=== PATIENT | female | born 1965 | race Caucasian/White ===

== ENCOUNTER → 2016-04-10 | Outpatient (CLI) | payer BC ==
--- NOTE | 2016-04-11 12:41 | MAMMOGRAPHY REPORT ---
BILATERAL DIGITAL SCREENING MAMMOGRAM TOMOSYNTHESIS WITH CAD: 04/10/2016 CLINICAL HISTORY: Routine screening examination. TECHNIQUE: Breast tomosynthesis in addition to standard 2D mammography was performed. Current study was also evaluated with a Computer Aided Detection (CAD) system. COMPARISON: Comparison is made to exams dated: 04/07/2015 mammogram, 04/06/2014 mammogram, 3 mammogram, 12/20/2011 mammogram, 12/15/2010 mammogram, and 12/05/2009 mammogram - [facility]. BREAST COMPOSITION: There are scattered areas of fibroglandular density in both breasts. FINDINGS: There are new grouped microcalcifications in the upper outer middle one third of the left breast, for which additional spot magnification views are recommended. No other suspicious mass, architectural distortion or cluster of microcalcifications is seen. IMPRESSION: ACR BI-RADS CATEGORY 0: INCOMPLETE EVALUATION: NEED ADDITIONAL IMAGING EVALUATION The new grouped microcalcifications in the left upper outer breast needs additional evaluation. The patient will be called to schedule an appointment. Approximately 10% of breast cancers are not detected with mammography. A negative mammographic repor t should not delay biopsy if a clinically suggestive mass is present. Karyna Talavera M.D. ay/:04/10/2016 17:03:10 Ampoule Filler: Keshia ROMANO)(Mackenzie), [facility] letter sent: Addl Imaging 0 BI-RADS Code: ACR BI-RADS Category 0: Incomplete Evaluation: Need Additional Imaging Evaluation
== END | disposition home or self-care (01) ==
LOC: C.MAMM 16:21
PROVIDERS: ATTEND Obstetrics & Gynecology
DX: Z12.31 Encounter for screening mammogram for malignant neoplasm of breast (principal); R92.0 Mammographic microcalcification found on diagnostic imaging of breast

== ENCOUNTER → 2016-04-16 | Outpatient (CLI) | payer BC ==
--- NOTE | 2016-04-16 14:56 | MAMMOGRAPHY REPORT ---
UNILATERAL LEFT DIGITAL DIAGNOSTIC MAMMOGRAM AND TARGETED LEFT ULTRASOUND: 04/16/2016 CLINICAL HISTORY: 51-year-old woman called back from screening mammography for grouped left breast c alcifications. At the time of diagnostic evaluation patient reported an itchy left nipple and areol a for which targeted ultrasound was also performed. TECHNIQUE: Spot magnification left CC and ML views were obtained. COMPARISON: Comparison is made to exams dated: 04/10/2016 mammogram, 04/07/2015 mammogram, 04/06/2014 mammogram, 01/07/2013 mammogram, 12/15/2010 mammogram, and 12/05/2009 mammogram - [facility]. BREAST COMPOSITION: There are scattered areas of fibroglandular density in the left breast. FINDINGS: There is a 7.5 mm grouping of punctate and amorphous microcalcifications in the approximat e 3:00 middle one third of the left breast that is new compared to prior mammograms. This is indete rminate, warranting definitive characterization with tissue sampling. No other suspicious mass, arc hitectural distortion or cluster of microcalcifications is seen throughout the remainder of the visu alized left breast. At the time of diagnostic evaluation, the patient reported and itchy left nipple and areola, but she also recently had shingles along her left upper abdomen. Therefore additional sonographic evaluati on was performed in the retroareolar and periareolar left breast. Normal fibroglandular tissue is s een without a discrete solid or cystic mass. IMPRESSION: ACR BI-RADS CATEGORY 4B: INTERMEDIATE SUSPICION FOR MALIGNANCY, TARGETED ULTRASOUND ACR BI-RADS CATEGORY 4B: INTERMEDIATE SUSPICION FOR MALIGNANCY 1. Stereotactic guided biopsy is recommended for new grouped punctate and amorphous micro-calcifica tions in the upper outer quadrant of the left breast. 2. Clinical follow-up is recommended for the left nipple and areola itchiness. These results and recommendations were discussed with the patient at the time of the exam. She tent atively scheduled the biopsy prior to leaving our department. Approximately 10% of breast cancers are not detected with mammography. A negative mammographic repor t should not delay biopsy if a clinically suggestive mass is present. Karyna Talavera M.D. ay/:04/16/2016 12:26:46 French Comber: Roxanne JI(Dorinda)(Mackenzie), [facility] letter sent: Abnormal 4/5 BI-RADS Code: ACR BI-RADS Category 4B: Intermediate Suspicion For Malignancy Ultrasound BI-RADS: AC R BI-RADS Category 4B: Intermediate Suspicion For Malignancy
== END | disposition home or self-care (01) ==
LOC: C.MAMM 09:44
PROVIDERS: ATTEND Obstetrics & Gynecology
DX: R92.0 Mammographic microcalcification found on diagnostic imaging of breast (principal)

== ENCOUNTER → 2016-04-20 | Outpatient (CLI) | payer BC ==
--- NOTE | 2016-04-20 13:18 | Discharge Instructions ---
Discharge Instructions Procedure Procedure Date: Apr 20, 2016. Reason for visit: Left Calcs. Discharge Discharge Date: Apr 20, 2016. Discharge Diagnosis: status post breast biopsy Instructions Activity Recommendations: Additional Limitations (see below) Return to School/Work: no limitations Recommended Home Diet: No Limitations Provider Instructions: ACTIVITY RECOMMENDATIONS: * No lifting, pushing, pulling or exercising the affected side for three days. RETURN TO SCHOOL/WORK: * You may return to work/school after the procedure, but do not perform any strenuous activities for 24 to 48 hours. MEDICATIONS: * Tylenol (two 325 mg) every four to six hours if needed for mild pain (if not allergic to Tylenol). DIET: * Resume previous diet. SPECIAL CARE INSTRUCTIONS: * Keep biopsy site dry for 24 hours. May shower after 24 hours, but do not soak (bathe) incision. * May remove Tegaderm (plastic patch) tomorrow AFTER showering. * Leave the steri-strips on for one week. Allow the steri-strips to fall off by themselves. If not off after one week, you may remove them. You may place a Bandaid crosswise over the strips, if desired. * Apply ice 10 minutes on and 10 minutes off as needed. * Wear a bra at bedtime to sleep more comfortably for 2-3 days. * Your referring physician should have the results after approximately 5 to 7 business days. * Call for unusual bleeding, fever, drainage, etc or if you have any questions call during normal business hours or after hours call Dr Marcial, [phone]. FOLLOW UP VISIT: Follow-up with Referring Physician as scheduled. Allergies Coded Allergies: No Known Allergies (Unverified , 12/05/11) Jean-Claude Umanzor Recommendations: Call your doctor if: * Temperature above 101 degrees * Pain not relieved by pain medicine ordered * There is increased drainage or redness from any incision * You have any unanswered questions or concerns. Your Doctors Instructions noted above were prepared by provider Annie Marcial. Patient Signature Section: Patient Instructions Signature Page Edith Jones Patient (or Guardian) Signature/Date: I have read and understand the instructions given to me by my caregivers. Caregiver/RN/Doctor Signature/Date: The above-named patient and/or guardian has received patient instructions on this date. + Original Patient Signature Page (only) stays with chart. Please make copy for patient.
--- NOTE | 2016-04-20 15:18 | MAMMOGRAPHY REPORT ---
STEREOTACTIC GUIDED BIOPSY LEFT BREAST: 04/20/2016 CLINICAL HISTORY: Indeterminate calcifications in the left upper outer quadrant. PATIENT CONSENT: The procedure, risks, benefits, and alternatives of stereotactic biopsy with clip p taylor were discussed with the patient, and verbal and written consent was obtained. A timeout wa s performed immediately prior to the procedure. PROCEDURE DESCRIPTION: With stereotactic guidance, aseptic technique, and lidocaine as a local anest hetic (1% lidocaine to anesthetize the skin and 1% lidocaine with epinephrine to anesthetize the tobi per tissues), the area of concern was sampled multiple times with a 9-gauge vacuum-assisted biopsy n eedle (Suros Eviva). The path of approach was lateral. The specimen radiograph demonstrates calcif ications to be present in the samples. A metallic marker clip was placed at the biopsy site. This was confirmed on postprocedure mammograms. Direct pressure was applied at the biopsy site and hemos tasis was readily achieved. The patient tolerated the procedure without complication. She was give n wound care instructions. COMPARISON: Comparison is made to exams dated: 04/16/2016 mammogram, 04/10/2016 mammogram, 04/07/2015 m ammogram, 04/06/2014 mammogram, 01/07/2013 mammogram, and 12/20/2011 mammogram - [facility]. IMPRESSION: STEREOTACTIC GUIDED BIOPSY Stereotactic biopsy of indeterminate calcifications in the left upper outer quadrant, with clip kae ward. The patient will receive pathology results from her referring physician. Annie Marcial M.D. /:04/20/2016 13:19:10 Attending Technologist: Roxanne Nieves RT(R)(M), [facility] Marketing Graphics Specialist: Yehuda Wong RT(R)(M), [facility]
--- NOTE | 2016-04-20 15:18 | MAMMOGRAPHY REPORT ---
UNILATERAL LEFT DIGITAL DIAGNOSTIC MAMMOGRAM: 04/20/2016 CLINICAL HISTORY: Status post stereotactic biopsy of left upper outer quadrant calcifications. TECHNIQUE: Postprocedural left CC and LM views were obtained. COMPARISON: Comparison is made to exams dated: 04/10/2016 mammogram, 04/07/2015 mammogram, 04/06/2014 mammogram, 01/07/2013 mammogram, and 12/20/2011 mammogram - [facility]. BREAST COMPOSITION: There are scattered areas of fibroglandular density in the left breast. FINDINGS: A new biopsy marker clip is seen at the site of the biopsied calcifications in the left u pper outer quadrant/3:00 region. No significant postbiopsy hematoma is seen. IMPRESSION: POST PROCEDURE IMAGING FOR MARKER PLACEMENT New biopsy marker clip status post left breast stereotactic biopsy. Pathology results are pending. Approximately 10% of breast cancers are not detected with mammography. A negative mammographic repor t should not delay biopsy if a clinically suggestive mass is present. Annie Marcial M.D. ah/:04/20/2016 13:36:45 Air Conditioning Unit Tester: Yehuda JI(R)(M), [facility] BI-RADS Code: Post Procedure Imaging For Marker Placement
== END | disposition home or self-care (01) ==
LOC: C.MAMM 12:36
PROVIDERS: ATTEND Obstetrics & Gynecology
DX: N60.12 Diffuse cystic mastopathy of left breast (principal); R92.0 Mammographic microcalcification found on diagnostic imaging of breast

== ENCOUNTER → 2016-05-14 | Outpatient (CLI) | payer BC | END | disposition home or self-care (01) | LOC: C.PAPS 13:14 | PROVIDERS: ATTEND Obstetrics & Gynecology | DX: Z01.419 Encounter for gynecological examination (general) (routine) without abnormal findings (principal) ==

== ENCOUNTER → 2016-07-05 | Outpatient (CLI) | payer BC ==
--- NOTE | 2016-07-05 13:35 | MAMMOGRAPHY REPORT ---
UNILATERAL LEFT DIGITAL DIAGNOSTIC MAMMOGRAM WITH CAD AND TARGETED LEFT ULTRASOUND: 07/05/2016 CLINICAL HISTORY: The patient had a stereotactic biopsy of the left breast April 2016, which yield ed benign findings. She reports that she had tenderness in the left breast during her clinical lubna st exam and May, and also feels a possible lump. TECHNIQUE: Current study was also evaluated with a Computer Aided Detection (CAD) system. Left CC and MLO views were obtained. COMPARISON: Comparison is made to exams dated: 04/20/2016 stereotactic biopsy, 04/20/2016 mammogram, 04/16/2016 mammogram, 04/16/2016 ultrasound, 04/10/2016 mammogram, and 04/07/2015 mammogram - [facility]. BREAST COMPOSITION: There are scattered areas of fibroglandular density in the left breast. FINDINGS: A triangle marker was placed at the site of the palpable lump and pain in the left 12 to 1 :00 breast. A square marker was placed at the site of the scar from stereotactic biopsy in the left upper outer quadrant. A biopsy marker clip is again seen within the left upper outer quadrant from prior benign stereotactic biopsy. There are no suspicious masses, calcifications, or areas of arch itectural distortion noted in the left breast. No mass is seen at the biopsy site to suggest a teresa mariposa. Targeted ultrasound was performed of the area of tenderness pointed out by the patient in the left b reast at 12:00, with the possible palpable lump centered at 12:00 approximately 3 cm from the nipple . Sonographically normal tissue is seen in these regions, without evidence of a mass or other suspi cious sonographic abnormality. Targeted ultrasound was also performed of the area of the scar from stereotactic biopsy in the left breast at 3:00. A small ill-defined hypoechoic region is seen at th e biopsy site, consistent with expected postsurgical scarring. No suspicious mass is evident. No f luid collection is seen to suggest a hematoma. IMPRESSION: ACR BI-RADS CATEGORY 2: BENIGN, TARGETED ULTRASOUND ACR BI-RADS CATEGORY 2: BENIGN No suspicious mammographic or sonographic abnormality at the site of tenderness/possible lump in the left breast pointed out by the patient. There is no mammographic or targeted sonographic evidence of malignancy. Recommend clinical follow-up for left breast findings, and recommend routine bilater al screening mammograms which are due April 2017. The patient has been verbally notified of the results. Approximately 10% of breast cancers are not detected with mammography. A negative mammographic repor t should not delay biopsy if a clinically suggestive mass is present. Annie Marcial M.D. ah/:07/05/2016 10:38:26 Vmware Architect: Roxanne Carlisle, [facility] letter sent: Normal 1/2 BI-RADS Code: ACR BI-RADS Category 2: Benign Ultrasound BI-RADS: ACR BI-RADS Category 2: Benign
== END | disposition home or self-care (01) ==
LOC: C.MAMM 09:34
PROVIDERS: ATTEND Obstetrics & Gynecology
DX: N64.89 Other specified disorders of breast (principal)

== ENCOUNTER → 2016-08-21 | Outpatient (CLI) | payer BC ==
[2016-08-21 11:23] LABS: ALT/SGPT 20 U/L (12-78); BLOOD UREA NITROGEN 18 mg/dl (7-18); BUN/CREATININE RATIO 24.1 (10-20); CARBON DIOXIDE 30 mmol/L (21-32); CHLORIDE 104 mmol/L (98-107); CHOLESTEROL 181 mg/dl (0-200); CREATININE 0.73 mg/dl (0.60-1.20); GLUCOSE 99 mg/dl (70-99); POTASSIUM 3.9 mmol/L (3.5-5.1); SODIUM 139 mmol/L (136-145); TRIGLYCERIDES 77 mg/dl (0-150); VERY LOW DENSITY LIPOPROT CALC 15 mg/dl
[2016-08-21 11:33] LABS: ALB/GLOB RATIO 1.1 (0.9-2); ALKALINE PHOSPHATASE 45 U/L (45-117); AST/SGOT 14 U/L (15-37); CHOLESTEROL/HDL RATIO 2.7; HDL CHOLESTEROL 66 mg/dl; LDL CHOLESTEROL CALCULATED 100 mg/dl
[2016-08-21 11:44] LABS: CALCIUM 9.2 mg/dl (8.5-10.1)
== END | disposition home or self-care (01) ==
LOC: C.LABBC 07:51
PROVIDERS: ATTEND Physician Assistant Medical
DX: I10 Essential (primary) hypertension (principal)

== ENCOUNTER → 2017-04-18 | Outpatient (CLI) | payer OTHER ==
--- NOTE | 2017-04-19 15:08 | MAMMOGRAPHY REPORT ---
BILATERAL DIGITAL SCREENING MAMMOGRAM TOMOSYNTHESIS WITH CAD: 04/18/2017 TECHNIQUE: Breast tomosynthesis in addition to standard 2D mammography was performed. Current study was also evaluated with a Computer Aided Detection (CAD) system. COMPARISON: Comparison is made to exams dated: 07/05/2016 ultrasound, 07/05/2016 mammogram, 04/20/2016 stereotactic biopsy, 04/20/2016 mammogram, 04/16/2016 mammogram, and 04/16/2016 ultrasound - [facility]. BREAST COMPOSITION: There are scattered areas of fibroglandular density in both breasts. FINDINGS: No suspicious masses, calcifications, or areas of architectural distortion are noted in ei ther breast. There has been no significant interval change compared to prior exams. A biopsy marker clip is again noted within the left upper outer quadrant. IMPRESSION: ACR BI-RADS CATEGORY 2: BENIGN There is no mammographic evidence of malignancy. A 1 year screening mammogram is recommended. The pa tient will receive written notification of the results. Approximately 10% of breast cancers are not detected with mammography. A negative mammographic report should not delay biopsy if a clinically suggestive mass is present. Annie Marcial M.D. /:04/18/2017 16:21:32 Sdet: Corrina JI(Dorinda)(Mackenzie), [facility] letter sent: Normal 1/2 BI-RADS Code: ACR BI-RADS Category 2: Benign
== END | disposition home or self-care (01) ==
LOC: C.MAMM 15:55
PROVIDERS: ATTEND Obstetrics & Gynecology
DX: Z12.31 Encounter for screening mammogram for malignant neoplasm of breast (principal)

== ENCOUNTER → 2017-05-20 | Outpatient (CLI) | payer OTHER | END | disposition home or self-care (01) | LOC: C.PAPS 09:09 | PROVIDERS: ATTEND Obstetrics & Gynecology | DX: Z01.419 Encounter for gynecological examination (general) (routine) without abnormal findings (principal) ==